=== PATIENT | female | born 1960 | race Caucasian/White ===

== ENCOUNTER 2024-12-13 21:08 | Inpatient (IN) | payer MEDICARE, OTHER, SELFPAY ==
[2024-12-13] VITALS (17 sets, daily range): BP systolic 91–118; BP diastolic 43–77; BMI 22.7
[2024-12-13 18:22] LABS: % Basophils 0.2 % (0-2); % Immature Granulocytes 0.2 % (0-0.5); % Lymphocytes 5.3 % (20.5-51.1); % Monocytes 1.3 % (1.7-9.3); Absolute Lymphocytes 0.2 10^3/uL (1.2-3.4); Absolute Monocytes 0.1 10^3/uL (0.1-0.6); Absolute Neutrophils 4.2 10^3/uL (1.4-6.5); Hematocrit 26.9 % (37.0-47.0); Hemoglobin 8.2 g/dL (12.0-16.0); Mean Corp Hgb Conc. 30.5 g/dL (33.0-37.0); Mean Corpuscular Hgb 27.4 pg (27.0-31.0); Mean Platelet Volume 9.6 fL (7.4-10.4); Nucleated Red Blood Cells % 0 %; Platelet Count 232 10^3/uL (130-400); Red Blood Cell Count 2.99 10^6/uL (4.20-5.40); Red Cell Dist. Width 15.7 % (11.5-14.5); White Blood Cell Count 4.5 10^3/uL (4.8-10.8)
[2024-12-13 18:39] LABS: Lactic Acid 5.2 mmol/L (0.7-2.0)
[2024-12-13 18:43] LABS: ALT (SGPT) 32 U/L (0-35); AST (SGOT) 97 U/L (14-36); Albumin 3.4 g/dl (3.5-5.0); Blood Urea Nitrogen 22 mg/dl (7-17); Calcium 9.4 mg/dl (8.4-10.2); Carbon Dioxide 29 mmol/L (22-30); Chloride 102 mmol/L (98-107); Estimated Creatinine Clearance 73 ml/min; Glucose 81 mg/dl (70-99); Sodium 141 mmol/L (135-145); Total Bilirubin 1.1 mg/dl (0.2-1.3); eGFR > 60.00
[2024-12-13 18:50] LABS: Alkaline Phosphatase 1188 U/L (38-126)
[2024-12-13 18:54] LABS: NT-proBNP 960 pg/ml
--- NOTE | 2024-12-13 19:07 | ED.GENMED ---
History of Present Illness
General
Chief Complaint: Fever
Time Seen by Provider: 12/13/24 18:35
History of Present Illness
History of Present Illness:
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 Patient arrives with brother, notes that fever started today. Patient receives her cancer care at [facility],
currently on chemotherapy. She is on oral medication. Denies any increased dyspnea or cough. Denies pain. Denies abdominal pain or vomiting. Notes chronic lower extremity swelling. She is on 6 L at baseline. No known sick contacts. Patient
is full code. No additional history or symptoms reported at this time
Phy Exam
Physical Exam
Physical Exam:
General: Frail, cachectic
HEENT: protecting airway
Neck: appears supple
CV: Tachycardic, regular rhythm, no evidence of cyanosis
Resp: Increased work of breathing with rhonchorous breath sounds bilaterally
Abd: Soft and non-distended, no tenderness to palpation
Extremities: Moderate pitting edema to bilateral lower extremities, reported as chronic. Weeping
Neuro: alert, no focal neurologic deficit
: deferred
Rectal: deferred
Psych: Normal affect
Skin: Intact
Sepsis
Sepsis Screening
Sepsis Assessment: Septic Shock
Sepsis Screening: Lactate >/=4mmol/L
Sepsis Screen
Sepsis Screen: Septic Shock
Date: 12/13/24
Time: 20:18
Course
Orders/Labs/Results
Orders:
Orders
12/13/24 18:06
Electrocardiogram (*1) Urgent
Reason for Study: Other
Other Reason for Exam: Possible Sepsis
CR Chest Portable - 1 View Urgent
Comment: portable
Reason For Exam: hypoxic
Reason Study Needs to be Portable: Patient Unstable
12/13/24 18:07
EKG- Treatment ONCE
12/13/24 18:14
Complete Blood Count/With Diff Urgent
Comprehensive Metabolic Panel Urgent
Lactic Acid Q4H
Comment: ON ICE, CANCEL 2ND ORDER IF FIRST LACTIC ACID LEVEL <2
Blood Culture Q20M
SAMUEL Source: Blood/Venous
Specimen Description:
Comment: Urgent from separate sites. If patient screens positive for possible sepsis
12/13/24 18:27
BNP [NT-proBNP] Urgent
12/13/24 18:57
0.9% Sodium Chloride 1000 ml [Nss] 1,000 ml IV BOLUS
Acetaminophen [Tylenol] 650 mg PO NOW STA
Cefepime HCl [Maxipime] 2,000 mg IV NOW STA
Vancomycin [Vancocin] 1,500 mg 0.9% Sodium Chloride 500 ml [Nss] 500 ml IV NOW
12/13/24 19:00
Urinalysis Reflex To Culture Urgent
12/13/24 19:10
Blood Culture Q20M
SAMUEL Source: Blood/Venous
Specimen Description:
Comment: Urgent from separate sites. If patient screens positive for possible sepsis
12/13/24 19:16
0.9% Sodium Chloride 1000 ml [Nss] 1,000 ml IV BOLUS
12/13/24 20:17
0.9% Sodium Chloride 1000 ml [Nss] 1,000 ml IV BOLUS
12/13/24 22:15
Lactic Acid Q4H
Comment: ON ICE, CANCEL 2ND ORDER IF FIRST LACTIC ACID LEVEL <2
Abnormal Lab Results
12/13/24
18:14
WBC 4.5 L 10^3/uL
(4.8-10.8)
RBC 2.99 L 10^6/uL
(4.20-5.40)
Hgb 8.2 L g/dL
(12.0-16.0)
Hct 26.9 L %
(37.0-47.0)
MCHC 30.5 L g/dL
(33.0-37.0)
RDW 15.7 H %
(11.5-14.5)
Absolute Lymphs (auto) 0.2 L 10^3/uL
(1.2-3.4)
Neutrophils % 93.0 H %
(42.2-75.2)
Lymphocytes % 5.3 L %
(20.5-51.1)
Monocytes % 1.3 L %
(1.7-9.3)
BUN 22 H mg/dl
(7-17)
Creatinine 0.5 L mg/dL
(0.6-1.0)
Lactic Acid 5.2 H* mmol/L
(0.7-2.0)
AST 97 H U/L
(14-36)
Alkaline Phosphatase 1188 H U/L
(38-126)
Total Protein 6.0 L g/dl
(6.3-8.2)
Albumin 3.4 L g/dl
(3.5-5.0)
12/13/24 18:14
12/13/24 18:14
Vital Signs
Initial and Last Documented VS:
Initial Vital Signs
Temp Pulse Resp Pulse Ox
103.1 F H 151 18 88
12/13/24 18:01 12/13/24 18:01 12/13/24 18:01 12/13/24 18:01
Last Documented Vital Signs
Temp Pulse Resp BP Pulse Ox
103.1 F H 128 24 97/58 96
12/13/24 18:07 12/13/24 20:00 12/13/24 20:00 12/13/24 20:00 12/13/24 20:00
MDM/Problems Addressed
MDM/Problems Addressed:
64-year-old female with history of metastatic biliary cancer presenting for fever. Vital signs arrival significant for fever and tachycardia.
On exam patient is unwell in appearance. Patient's vital signs are concerning for sepsis. Unclear source at this time, however given comorbidities, plan for laboratory analysis, cultures, lactic acid. Patient had some laboratory analysis
completed prior to my assessment. No significant leukocytosis, however lactic acid is greater than 5, indicating severe sepsis. Will start fluids at 30 cc/kg fluid bolus. Blood pressure is also low. Did have discussion with patient and family,
is full code.
19:15 - Respiratory status is compromised, chest x-ray with significant findings, however suspected to be from underlying malignancy. Difficulty ruling out infiltrate. Starting broad-spectrum antibiotics. Placing patient on high flow nasal
cannula. Plan for admission
*Critical Care Note
Total Time (30-74mins, 75-104mins- exclusive of procedures): 37
comment:
The high probability of a clinically significant, sudden or life threatening deterioration of the cardiopulmonary, sepsis system(s) required my full and direct attention, intervention and personal management. The aggregate critical care time was 37
minutes. This time is in addition to time spent performing reported procedures but includes the following:
[x] Data Review and interpretation
[x] Patient assessment and monitoring of vital signs
[x] Documentation
[x] Medication orders and management
ED Attending Note
-
Portions of this chart may have been created with voice recognition software.� Occasional wrong word or��sound alike� substitutions may have occurred due to the inherent limitations of voice recognition software.
Discharge Plan
Departure
Patient Disposition: Admit
Date of Disposition: 12/13/24
Time of Disposition: 20:17
Presentation/result/management discussed w/ accepting MD/DO: Hospitalist
Patient with high blood pressure during this ER visit?: No
Condition: Fair
Discharge Problem:
Septic shock, Hypoxia
Interventions
Interventions:
*Risk Screen - Suicide Last Done: 12/13/24 18:00
*General Assessment Last Done: 12/13/24 18:00
*Neglect/Abuse Screening Last Done: 12/13/24 18:00
*ED- Fall Risk Assessment Last Done: 12/13/24 18:00
*ED COVID-19 Vaccine History Last Done: 12/13/24 18:00
ED- Neurological Assessment Last Done: 12/13/24 18:15
ED-Skin Assessment Last Done: 12/13/24 18:15
Discharge Date and Time
Print Language: NAURUAN
[2024-12-13] MEDS: TYLENOL 650 MG PO ×2 (19:14→22:34)
[2024-12-13] MEDS: NSS 1000 IV ×4 (19:16→23:01)
[2024-12-13] MEDS: MAXIPIME 2000 MG IV (19:19)
[2024-12-13] MEDS: VANCOCIN 530 MG IV (19:37)
[2024-12-13] MEDS: SUBLIMAZE 50 MCG IV (20:37)
[2024-12-13] MEDS: ZOFRAN 4 MG IV (20:37)
--- NOTE | 2024-12-13 21:01 | HPS.HSE ---
Family Physician
-
Family Physician: NOT KNOW UNKNOWN - PT DOES
Chief Complaint
-
fever
History of Present Illness
64yo F with PMHx of billiary adenocarcinoma with mets to the lung on ivosidenib, chronic hypoxic respiratory failure on 6L home O2, JOCELYNE, b/l LE lymphedema came wih 1 day of feversand chills, found to be febrile and in need of HFNC due to worsening
hypoxia. Her pimary oncologist is in [facility].
Medical History
Past Medical History
Past Medical History: Reports Other
Additional Past Medical History:
See HPI
Past Surgical History: Reports Other
Social History
Tobacco: Non-smoker
Alcohol: None
Drug: None
Family History
Family History: Not pertinent
Allergies / Home Medications
Allergies reflects when Allergies were last updated in [facility].
Home Medications with original date entered in [facility]
Allergy/Medication List:
Allergies
Allergy/AdvReac Type Severity Reaction Status Date / Time
neomycin Allergy Severe Maharaj Verified 12/13/24 18:05
Ziyad
[place]
Home Medications
cyanocobalamin (vitamin B-12) 1,000 mcg tablet 1,000 mcg PO DAILY 12/13/24
diphenoxylate-atropine 2.5 mg-0.025 mg tablet 2 tab PO 4-8XD PRN diarrhea 12/13/24
ferrous sulfate 325 mg (65 mg iron) tablet 325 mg PO DAILY 12/13/24
furosemide 20 mg tablet 20 mg PO BID 12/13/24
ivosidenib 250 mg tablet 500 mg PO DAILY 12/13/24
loperamide 2 mg tablet 2 mg PO Q6H PRN diarrhea 12/13/24
lorazepam 1 mg tablet 1 mg PO HS 12/13/24
ondansetron 8 mg disintegrating tablet 8 mg PO Q8H 12/13/24
prochlorperazine maleate 10 mg tablet (Compazine) 10 mg PO Q6H PRN nausea 12/13/24
spironolactone 25 mg tablet 25 mg PO BID 12/13/24
Review of Systems
-
History Source: Patient
A 12 point ROS was completed and negative except as noted: Yes
Constitutional: Reports See HPI
Respiratory: Reports See HPI
Physical Exam
Vital Signs
Vital Signs
Temp Pulse Resp BP Pulse Ox
103.1 F H 131 27 92/77 95
12/13/24 18:07 12/13/24 20:15 12/13/24 20:15 12/13/24 20:15 12/13/24 20:15
Physical Exam
General: Comfortable, Conversant and Respiratory Distress
HEENT: NormoCephalic, Moist mucous membranes and Atraumatic
Respiratory: Rales; No Wheezes or Crackles
Cardiac: S1/S2 and Regular Rhythm; No Murmur
GI: Non Tender, Normal Bowel Sounds and Distended
Musculoskeletal: No Clubbing, No Cyanosis, Edema, Left Lower Extremity and Edema, Right Lower Extremity
Skin: Warm; No Dry or Rash
Neuro: Awake, Alert, Oriented and AO x 3
Psych: Calm
Laboratory Results
-
12/13/24 18:14
12/13/24 18:14
Laboratory Results
Lactic Acid 5.2 mmol/L (0.7-2.0) H* 12/13/24 18:14
Total Bilirubin 1.1 mg/dl (0.2-1.3) 12/13/24 18:14
AST 97 U/L (14-36) H 12/13/24 18:14
ALT 32 U/L (0-35) 12/13/24 18:14
Alkaline Phosphatase 1188 U/L (38-126) H 12/13/24 18:14
Data Reviewed
-
Diagnostic Radiology: Report Reviewed by me
Lab Data: Labs Reviewed by me
Impression/Plan
-
A/P:
#Sepsis (Hypoxia, fever, elevated lactate) most likely 2/2 pneumonia
#Acute on chronic hypoxic respiratory failure
#Thin curvilinear density projecting over the lateral aspect of the left upper hemithorax. This density raises concern for a small loculated pneumothorax
Complete w/u with Bcx, Ucx
Vanco/Cefepime
Pulm consult
Wean off O2
IVF
repeat XR in AM
Check COVID-19 and influenza
Sputum Cx
Hold diuretics, follow lactte
#Biliary adenocarcinoma with mets
Oncology consult - patient requested to contact in [facility]
#Anemia
#Leukopenia
follow CBC
#Eleavted Alk.phos
#Elevated AST
2/2 CA
follow LFT
DVT ppx lovenox
DNI, but allowed chest compressions (patient verbalized understanding that can vbe futile without intubation but asking to try one time and if does not help -stop. Family present in the room)
I have spent at least 78min admitting the patient
[2024-12-13 21:17] LABS: COVID-19 Antigen Negative (Negative)
[2024-12-13 22:17] LABS: B.E. 4.5 mmol/L; HCO3 30.2 mmol/L (21-28); O2 Saturation % 89.5 % (94-98); PCO2 51 mmHg (32-35); pH 7.38 (7.35-7.45)
[2024-12-13 22:20] LABS: PO2 56 mmHg (83-108)
[2024-12-13] MEDS: ATIVAN 1 MG PO (22:34)
--- NOTE | 2024-12-13 22:40 | PTCARENOTE ---
Received pt from ED at 21:50. Pt aaox3, able to make needs known. ST on monitor, HR 120-130s. +4blle edema. Lungs diminished with crackles in bases, exp wheeze throughout L side. On HFNC 50L 100%, SaO2 90%. Stress incont of urine.
Round/distended/firm abdomen (ascites). Sacrum blanchable red, silicone border foam applied. Legs weeping, but no open areas. Legs left open to air. Assistx2 to turn in bed. Q2T. Rectal temp on arrival 101.1. PO tylenol given. Call jaramillo within
reach, care ongoing.
--- NOTE | 2024-12-13 23:42 | PTCARENOTE ---
pt aaox3, able to make needs known. Repeat lactic ordered. Pt states she does not want any more labs drawn until they access her port. IV team paged. Will draw lactic once port is accessed.
[2024-12-14] VITALS (50 sets, daily range): BP systolic 70–145; BP diastolic 46–93; BMI 22.7
[2024-12-14 00:32] LABS: Lactic Acid 2.9 mmol/L (0.7-2.0)
--- NOTE | 2024-12-14 00:35 | VATNOTE ---
CALLED TO ACCESS R SUBQ PRT TO OBTAIN LABS . PT REFUSING FOR LABS UNLESS PRT ACCESSED. PT WITH TWO 20G PERIPERHAL SITES AT THIS TIME AND HAS NO NEED FOR A CENTRAL ACCESS. ORDERED LAB DRAWN FROM R IV SITE. PT ASLEEP AND I DID NOT AWAKEN TO EXPLAIN
SITUATION TO HER. SPOKE WITH PCN. WILL ACCESS PRT AT ANY TIME NECESSARY. VAT TO FOLLOW.
--- NOTE | 2024-12-14 00:49 | PTCARENOTE ---
per IV team, port access not necessary. Labs to be drawn peripherally. Repeat lactic 2.9, will recheck with am labs
--- NOTE | 2024-12-14 01:15 | W.PN.UPDATE ---
Update Note
Progress Note Update
~2230: RN reached out about pts rectal temp of 101.1. HR in the 120s- 130s. BPs 100s/50s. Lactic 5.2. Already on Cefepime and Vanco. IVFs ordered. PRN Tylenol given by RN.
CXR in the ER read Extensive pulmonary metastatic disease. No evidence for significant pleural effusion on this portable AP exam.
Thin curvilinear density projecting over the lateral aspect of the left upper hemithorax. This density raises concern for a small loculated pneumothorax, although there appear to be lung markings extending peripheral to this density. This could also
be overlying the patient. When clinically feasible, repeat radiograph is recommended.
~0057 Pt with BP 85/46 HR 110s-120s. On re-check BP was 70/40 with manual check and automatic cuff. Pt asymptomatic- sleepy yet arousable to verbal stimuli. She already received 3L of NS wide open in the ED and is on NSS IVF @ 100ml/hr. Levo gtt
ordered starting at 2 mcg/min. repeat lactic trending down to 2.9 and repeat temp. 98.2 after Tylenol.
~0500 RN TT to alert HGB 7.1 drop from 8.2. No active bleeding signs overtly seen. Pt remains on Levo gtt. H&H repeated to confirm accuracy- Type and screen added at this time. Pt resting in bed tired but asymptomatic otherwise. Denies
lightheadedness/dizziness. Morning glucose on labs read <30 and on AccuCheck she read 36- Pt alert enough and drink juice- D50 PRN, accuchecks added and IVF switched from NSS to D5NS. morning Lactic was 1.6.
~0600 Repeat accucheck after D50 was 142 Repeat HGB 7.6- type and screen obtained.
[2024-12-14] MEDS: LEVOPHED 250 IV (01:21)
--- NOTE | 2024-12-14 01:36 | PTCARENOTE ---
Repeat rectal temp 98.2. BP 85/45 @00:00. Pt asymptomatic, aaox3, no c/o lightheadedness. Repeat BP @0100 70/47 automatic. Manual BP 70/40. Pt drowsy but easily arousable. RN NEONATAL notified via tiger text. Orders placed for levo. Levo started @ 2mcg/min.
Repeat BP s/p levo initiation 87/52.
[2024-12-14] MEDS: MAXIPIME 2000 MG IV ×3 (04:07→21:00)
[2024-12-14] MEDS: STERILE WATER FOR INJECTION 10 ML IV ×3 (04:08→21:00)
[2024-12-14 04:37] LABS: Hematocrit 22.8 % (37.0-47.0); Hemoglobin 7.1 g/dL (12.0-16.0); Mean Corp Hgb Conc. 31.1 g/dL (33.0-37.0); Mean Corpuscular Hgb 27.6 pg (27.0-31.0); Mean Corpuscular Volume 88.7 fL (81.0-99.0); Mean Platelet Volume 9.9 fL (7.4-10.4); Platelet Count 215 10^3/uL (130-400); Red Blood Cell Count 2.57 10^6/uL (4.20-5.40); Red Cell Dist. Width 15.7 % (11.5-14.5); White Blood Cell Count 15.3 10^3/uL (4.8-10.8)
[2024-12-14 04:48] LABS: Lactic Acid 1.6 mmol/L (0.7-2.0)
[2024-12-14 04:59] LABS: Absolute Neutrophils -Man Diff 13.9 10^3/uL (1.4-6.5); Anisocytosis 1+; Band Neutrophils 10 % (0-3); Hypochromasia 1+; Lymphocytes 8 % (20-51); Monocytes 1 % (2-9); Normal RBC Morphology No; Platelets Checked Yes; Segmented Neutrophils 81 % (42-75); Total Cells Counted 100
[2024-12-14 05:16] LABS: ALT (SGPT) 27 U/L (0-35); AST (SGOT) 112 U/L (14-36); Albumin 2.7 g/dl (3.5-5.0); Alkaline Phosphatase 876 U/L (38-126); Blood Urea Nitrogen 26 mg/dl (7-17); Carbon Dioxide 26 mmol/L (22-30); Chloride 109 mmol/L (98-107); Estimated Creatinine Clearance 73 ml/min; Glucose < 30 mg/dl (70-99); Magnesium 1.5 mg/dl (1.6-2.3); Sodium 139 mmol/L (135-145); Total Bilirubin 0.8 mg/dl (0.2-1.3); Total Protein 4.9 g/dl (6.3-8.2); eGFR > 60.00
[2024-12-14 05:33] LABS: Glucose - Point of Care 36 mg/dl (70-99)
[2024-12-14] MEDS: DEXTROSE 50% SYRINGE 12.5 GRAMS IV ×4 (05:45→21:22)
--- NOTE | 2024-12-14 05:45 | PTCARENOTE ---
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 Repeat h&h ordered and drawn. Repeat hgb 7.6. Orders for type and screen placed.
[2024-12-14 05:49] LABS: Glucose - Point of Care 31 mg/dl (70-99)
[2024-12-14 05:57] LABS: Hematocrit 24.2 % (37.0-47.0); Hemoglobin 7.6 g/dL (12.0-16.0)
[2024-12-14] MEDS: D5/0.9% SODIUM CHLORIDE 1000 IV (06:03)
--- NOTE | 2024-12-14 06:07 | PTCARENOTE ---
pt am labs showed glucose less than 30. Accucheck 36. Pt drowsy but arousable. Two cups of juice given. Repeat accucheck 31. Orders placed for IV dextrose. IV dextrose given. Fluids switched to D5NS @ 60ml/hr. Accuchecks ordered Q6H. Repeat
accucheck 142.
[2024-12-14 06:08] LABS: Glucose - Point of Care 142 mg/dl (70-99)
--- NOTE | 2024-12-14 08:13 | PTCARENOTE ---
Assumed care of patient this AM. 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 Levo @ 4mcg/15mls/hr. Last BP 105/79(88). Patient INC of loose stool and urine. Patient changed and repositioned at this time. High flow at 50L 100% spo2 96%.
Blood glucose 31 in lab work this AM. At 6AM glucose finger stick 141. Rechecked as per protocol BS 101 at 8AM. SR in the 90's. Call jaramillo in reach. Will continue to monitor frequently.
[2024-12-14 08:19] LABS: Glucose - Point of Care 101 mg/dl (70-99)
--- NOTE | 2024-12-14 08:19 | PHA.VAN.IN ---
Assessment
- Assessment
Renal Function: Appears similar to baseline
Concomitant Antimicrobials: cefepime
AUC Dosing Plan
- Dosing Variables
Dosing Weight (kg): 56
Dosing CrCl (ml/min): 73
Vd coefficient (L/kg): 0.7
- Empiric Dosing
Initial / Loading Dose: 1500mg - 12/13 19:37
Maintenance Regimen: Vanc 500mg Q12H - first dose now then 1800
Estimated AUC (mcg*h/mL): 405
Estimated Peak (mcg*h/mL): 23.6
Estimated Trough (mcg/ml): 11.5
Estimated Half Life (H): 10.7
- Monitoring
No levels ordered at this time: consider levels in next few days
Pharmacokinetics Vancomycin I
- -
Patient Age: 64
Patient Sex: Female
Vancomycin Day #: 1
Indication: Other
Requesting Provider: Dr. Gates
Pertinent Antimicrobial Allergies:
neomycin - Maharaj Ziyad syndrome
Height / Weight:
Height 5 ft 2 in
Actual Weight 56.3 kg
Pertinent Past Medical History: metastatic billiary adenocarcinoma, home O2
- Vital Signs / Lab Results
Temp Pulse Resp BP Pulse Ox
98.2 F 95 22 105/79 97
12/14/24 00:51 12/14/24 08:00 12/14/24 08:00 12/14/24 08:00 12/14/24 07:45
Lab Results - Hematology
12/13/24 12/14/24
18:14 04:19
WBC 4.5 L 15.3 H
Band Neutrophils 10 H
Lab Results - Chemistry
12/13/24 12/14/24
18:14 04:19
BUN 22 H 26 H
Creatinine 0.5 L 0.6
Estimated Creat Clear 73 73
Albumin 3.4 L 2.7 L
12/13/24 12/14/24 12/14/24
18:14 00:11 04:19
Lactic Acid 5.2 H* 2.9 H 1.6
Microbiology Results
12/13/24 18:14 Blood Culture - Preliminary
Blood/Venous Positive culture in progress
Gram Stain - Preliminary
12/13/24 20:42 Influenza Types A & B (JEANINE) - Final
Nasal Swab Negative for Influenza A & B, NAAT
Negative results must be combined with clinical observations
and patient history.
Nucleic Acid Amplification test (NAAT)performed on the
[employer] platform.
--- NOTE | 2024-12-14 08:42 | CON.ONC ---
Consultation
-
Date Consultation Requested: 12/14/24
Date Consultation Performed: 12/14/24
Requesting Provider: Nicole
Performing Provider: Belle
Reason for Consultation: Metastatic biliary cancer
Impression
Impression
Pneumonia/sepsis
Acute on chronic respiratory failure
Metastatic cholangiocarcinoma
Poor performance status
Plan
Plan
Agree with antibiotic treatment of presumed sepsis. White blood count is adequate. I am concerned about patient's functional decline and potential for progressive disease. She told me she does not wish prolonged CPR or ventilation. If she
improves, she will follow-up with Dr. Ron Arnold at [place]. We did discuss alternatives such as hospice care but for now she wants to see if she will improve with antibiotic therapy with suspected pneumonia/sepsis.
Patient History
History of Present Illness
CC: Fever, worsening hypoxia
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 Ron Arnold at [place] presenting for fever. Please me she previously was treated with standard treatments (cisplatin +
gemcitabine) that she tolerated poorly. More recently she is currently on TIBSOVO� (ivosidenib). Patient presented to the ER yesterday with fever 103.1 and worsening hypoxia requiring increase of chronic 6 L O2 (uses at home) to high flow O2.
Patient was empirically started on vancomycin + cefepime with a pulmonary consultation which is pending. Patient tells me she does not wish aggressive resuscitation if she has cardiopulmonary arrest. Limited DNR is noted.
Past-Medical/Surgical History
PMH: Metastatic cholangiocarcinoma with lung, liver, spine metastasis
PSH: None
SH: Non-smoker, nondrinker. Family includes sister, brother, and daughter
Patient Medication
�Medication �Instructions �Recorded �Confirmed �Last Taken �Type
cyanocobalamin (vitamin B-12) 1,000 mcg PO DAILY 12/13/24 12/13/24 Unknown History
1,000 mcg tablet
diphenoxylate-atropine 2.5 2 tab PO 4-8XD PRN diarrhea 12/13/24 12/13/24 Unknown History
mg-0.025 mg tablet
ferrous sulfate 325 mg (65 mg 325 mg PO DAILY 12/13/24 12/13/24 Unknown History
iron) tablet
furosemide 20 mg tablet 20 mg PO BID 12/13/24 12/13/24 Unknown History
ivosidenib 250 mg tablet 500 mg PO DAILY 12/13/24 12/13/24 Unknown History
loperamide 2 mg tablet 2 mg PO Q6H PRN diarrhea 12/13/24 12/13/24 Unknown History
lorazepam 1 mg tablet 1 mg PO HS 12/13/24 12/13/24 Unknown History
ondansetron 8 mg disintegrating 8 mg PO Q8H 12/13/24 12/13/24 Unknown History
tablet
prochlorperazine maleate 10 mg 10 mg PO Q6H PRN nausea 12/13/24 12/13/24 Unknown History
tablet (Compazine)
spironolactone 25 mg tablet 25 mg PO BID 12/13/24 12/13/24 Unknown History
Active Medications
Generic Name Dose Route Start Last Admin
Trade Name Freq PRN Reason Stop Dose Admin
Acetaminophen 650 mg 12/13/24 21:45 12/13/24 22:34
Acetaminophen 325 Mg Tablet PO 01/10/25 21:44 650 mg
Q4HPRN PRN Administration
mild pain/DANIELS/temp> 100.4F
Bisacodyl 10 mg 12/13/24 21:45
Bisacodyl 10 Mg Rectal Suppository RECTAL 01/10/25 21:44
[id number] PRN
constipation
Cefepime HCl 2,000 mg 12/14/24 04:00 12/14/24 04:07
Cefepime Hcl 2,000 Mg/12.5 Ml Vial IV 2,000 mg
Q8H LILLIAN Administration
Dextrose 12.5 grams 12/14/24 05:28 12/14/24 05:45
Dextrose 50% (0.5 Grams/Ml) 50 Ml Syringe IV 01/11/25 05:27 12.5 grams
[id number] PRN Administration
blood sugar <70
Diphenoxylate HCl/Atropine 2 tablet 12/13/24 21:56
Diphenoxylate/Atropine Tablet PO 01/10/25 21:44
Q6HPRN PRN
diarrhea
Enoxaparin Sodium 40 mg 12/14/24 18:00
Enoxaparin Sodium 40 Mg/0.4 Ml Syringe SC 01/11/25 17:59
QPM LILLIAN
Ferrous Sulfate 325 mg 12/14/24 08:00
Ferrous Sulfate 325 Mg Tablet PO 01/11/25 07:59
DAILY LILLIAN
Norepinephrine Bitartrate 4 mg in 250 mls @ 0 mls/hr 12/14/24 01:15 12/14/24 01:21
Levophed IV 250 mls
PER PROTOCOL LILLIAN Administration
Protocol
Per Protocol
Dextrose/Sodium Chloride 1,000 mls @ 60 mls/hr 12/14/24 06:00 12/14/24 06:03
D5/0.9% Sodium Chloride IV 1,000 mls
[id number] LILLAIN Administration
Vancomycin HCl 100 mls @ 100 mls/hr 12/14/24 09:00
Vancocin Hcl 500 Mg IV
Q12@0600,1800 LILLIAN
Protocol
Lorazepam 1 mg 12/13/24 22:00 12/13/24 22:34
Lorazepam 1 Mg Tablet PO 01/10/25 21:59 1 mg
HS LILLIAN Administration
Pt's Own (Ivosidenib 500 mg 12/14/24 08:00
250 Mg Tablet) PO 01/11/25 07:59
DAILY LILLIAN
Polyethylene Glycol 17 grams 12/13/24 21:45
Polyethylene Glycol Powder 17 Grams Packet PO 01/10/25 21:44
DAILYPRN PRN
constipation
Senna/Docusate Sodium 1 tablet 12/13/24 21:45
Docusate W/Senna (Dotty-Colace) Tablet PO 01/10/25 21:44
BIDPRN PRN
constipation
Sodium Chloride 0 flush 12/13/24 22:00
Sodium Chloride 0.9% (Flush) Syringe IV 01/10/25 21:59
PER PROTOCOL LILLIAN
Sterile Water 10 ml 12/14/24 04:00 12/14/24 04:08
Sterile Water For Injection 10 Ml Vial IV 01/11/25 03:59 10 ml
Q8H LILLIAN Administration
Trimethobenzamide HCl 200 mg 12/13/24 22:32
Trimethobenzamide 200 Mg/2 Ml Vial IM 01/10/25 22:31
Q6HPRN PRN
n/v
Physical Exam
-
General: Cachetic and Other (Chronically ill, frail)
HEENT: Negative Jaundice
Cardiology: S1 and S2
Pulmonary: Clear and Other (On high flow O2)
GI: Soft
Extremities: Edema (2-3+ B/L LE)
Neurology: Non Focal
Labs
Lab Results
WBC 15.3 10^3/uL (4.8-10.8) H 12/14/24 04:19
RBC 2.57 10^6/uL (4.20-5.40) L 12/14/24 04:19
Hgb 7.6 g/dL (12.0-16.0) L 12/14/24 05:39
Hct 24.2 % (37.0-47.0) L 12/14/24 05:39
MCV 88.7 fL (81.0-99.0) 12/14/24 04:19
MCH 27.6 pg (27.0-31.0) 12/14/24 04:19
MCHC 31.1 g/dL (33.0-37.0) L 12/14/24 04:19
RDW 15.7 % (11.5-14.5) H 12/14/24 04:19
Plt Count 215 10^3/uL (130-400) 12/14/24 04:19
MPV 9.9 fL (7.4-10.4) 12/14/24 04:19
Abs Immat Gran (auto) 0.0 10^3/uL (0-0.05) 12/13/24 18:14
Absolute Neuts (auto) 4.2 10^3/uL (1.4-6.5) 12/13/24 18:14
Absolute Lymphs (auto) 0.2 10^3/uL (1.2-3.4) L 12/13/24 18:14
Absolute Monos (auto) 0.1 10^3/uL (0.1-0.6) 12/13/24 18:14
Absolute Eos (auto) 0.0 10^3/uL (0-0.7) 12/13/24 18:14
Absolute Basos (auto) 0.0 10^3/uL (0-0.2) 12/13/24 18:14
Immature Gran % 0.2 % (0-0.5) 12/13/24 18:14
Neutrophils % 93.0 % (42.2-75.2) H 12/13/24 18:14
Lymphocytes % 5.3 % (20.5-51.1) L 12/13/24 18:14
Monocytes % 1.3 % (1.7-9.3) L 12/13/24 18:14
Eosinophils % 0.0 % (0-6) 12/13/24 18:14
Basophils % 0.2 % (0-2) 12/13/24 18:14
Creatinine 0.6 mg/dL (0.6-1.0) 12/14/24 04:19
Vital Signs
Vital Signs
Temp Pulse Resp BP Pulse Ox
98.2 F 95 22 105/79 97
12/14/24 00:51 12/14/24 08:00 12/14/24 08:00 12/14/24 08:00 12/14/24 07:45
[2024-12-14] MEDS: VANCOCIN HCL 500 MG 100 IV ×2 (10:09→17:45)
--- NOTE | 2024-12-14 10:27 | CON.PUL ---
Consultation
Consultation Request
Date/Time Consultation Requested: 12/14/2024
Date/Time Consultation Performed: 12/14/2024
Requesting Provider: Dr. Gates
Performing Provider: Dr. Manuel Jacob
Reason for Consultation: Hypoxemic respiratory failure
Medical History
-
History of Present Illness:
64-year-old woman with past medical history significant for biliary adenocarcinoma with lung metastatic disease currently on Ivosidenib, with chronic hypoxemic respiratory failure on 6 L at home. Patient has chronic bilateral lymphedema. Came with
1 day of fever and chills, found to be febrile in the emergency room. Significant hypoxemia requiring high flow oxygen. Chest x-ray on admission showed extensive pulmonary metastatic disease. No pleural effusion. Pneumonia cannot be ruled out.
Patient found to have leukocytosis, anemia of 7.6.
We were consulted on 12/15/2023 for evaluation
Patient has been losing weight.
She is debilitated. Mildly tachypneic at rest.
Somnolent unable to provide detailed history.
Family is at the bedside.
Currently on low-dose vasopressors and high flow oxygen at 100% FiO2.
Past Medical History
Past Medical History: Other (See assessment and plan)
Social History
Tobacco: Non-smoker
Alcohol: None
Drug: None
Family History
Family History: Reviewed & Not Pertinent
Allergies / Home Medications
Allergies
Allergy/AdvReac Type Severity Reaction Status Date / Time
neomycin Allergy Severe Maharaj Verified 12/13/24 18:05
Ziyad
Sydrome
Home Medications
�Medication �Instructions �Recorded �Confirmed �Last Taken �Type
cyanocobalamin (vitamin B-12) 1,000 mcg PO DAILY Supplement 12/13/24 12/13/24 Unknown History
1,000 mcg tablet
diphenoxylate-atropine 2.5 2 tab PO 4-8XD PRN diarrhea 12/13/24 12/13/24 Unknown History
mg-0.025 mg tablet
ferrous sulfate 325 mg (65 mg 325 mg PO DAILY Supplement 12/13/24 12/13/24 Unknown History
iron) tablet
furosemide 20 mg tablet 20 mg PO BID Fluid 12/13/24 12/13/24 Unknown History
Retention/Swelling
ivosidenib 250 mg tablet 500 mg PO DAILY Cancer 12/13/24 12/13/24 Unknown History
loperamide 2 mg tablet 2 mg PO Q6H PRN diarrhea 12/13/24 12/13/24 Unknown History
lorazepam 1 mg tablet 1 mg PO HS Mental Health/Anxiety 12/13/24 12/13/24 Unknown History
ondansetron 8 mg disintegrating 8 mg PO Q8H nausea/vomiting 12/13/24 12/13/24 Unknown History
tablet
prochlorperazine maleate 10 mg 10 mg PO Q6H PRN nausea 12/13/24 12/13/24 Unknown History
tablet (Compazine)
spironolactone 25 mg tablet 25 mg PO BID Fluid 12/13/24 12/13/24 Unknown History
Retention/Swelling
Review of Systems
-
History Source: Patient
All other systems: Negative unless noted
Vitals / Labs / Diagnostic Testing
Vital Signs
Temp Pulse Resp BP Pulse Ox
97.1 F 99 26 122/71 96
12/14/24 09:26 12/14/24 10:00 12/14/24 10:00 12/14/24 10:00 12/14/24 10:00
Lab Data
12/14/24 05:39
12/14/24 04:19
Laboratory Results
12/13/24
22:06
pH 7.38
pCO2 51 H
pO2 56 L*
HCO3 30.2 H
O2 Delivery Level
Microbiology
12/13/24 18:14 Blood/Venous Blood Culture - Preliminary
Positive culture in progress
12/13/24 18:14 Blood/Venous Gram Stain - Preliminary
12/13/24 20:42 Nasal Swab Influenza Types A & B (JEANINE) - Final
Negative for Influenza A & B, NAAT
Negative results must be combined with clinical observations
and patient history.
Nucleic Acid Amplification test (NAAT)performed on the
[employer] platform.
Diagnostic Testing:
Physical Exam
-
HEENT: Normocephalic
Cardiovascular: S1/S2
Respiratory: Rales
GI: Soft and Non Distended
Neurology: Awake and Other (Somnolent but arousable.)
Skin: Warm and Other (Pale)
General: Respiratory Distress (Mild R breast) and Other (Cachectic)
Assessment
-
64-year-old woman with past medical history of biliary metastatic carcinoma on therapy at [facility]. Admitted with fevers, hypoxemia and abnormal chest x-ray suggestive of pneumonia. We were consulted on 12/14/2024 for evaluation of
hypoxemia and abnormal chest x-ray.
Acute hypoxemic respiratory failure recurrent high flow oxygen due to possible pneumonia on top of bilateral metastatic disease.
Chest x-ray: Bilateral metastatic disease-lower lobe infiltrate suggestive of pneumonia versus atelectasis.
Chronic hypercapnic respiratory failure: Likely due to underlying bilateral metastatic lung disease burden.
AB.38/51/56. Bacteremia: Gram-positive cocci in clusters
Septic shock
Gram stain with gram-positive cocci in clusters.
Chronic immunosuppression on cancer therapy
Severe anemia likely due to underlying carcinoma/chemotherapy
Abnormal LFTs-elevated alkaline phosphatase/mild transaminitis-suspect bone metastatic disease.
Cachexia
-
Leukocytosis conditions present prior admission:
Conditions present prior admission
Biliary adenocarcinoma with pulmonary metastasis-follows at [facility]-on chemotherapy
.
Assessment and plan:
Unfortunately, this patient is critically ill with severe hypoxemia-chest x-ray with extensive bilateral pulmonary metastatic burden and cannot rule out pneumonia. Lymphangitic spread also could be the reason for her progressive hypoxemia and
symptoms.
Requiring low-dose vasopressors earlier today.
-
Agree with broad-spectrum antibiotics
Follow-up blood culture [id number] cocci in clusters.
Patient has a port. If persistent positive blood cultures may need to be addressed.
Repeat blood cultures tomorrow
Sputum culture if able-unable to produce.
-
Septic shock:
Vasopressors will be used for mean arterial systolic pressure less than 65 mmHg
Levophed at 2 mics per minute. Wean off as able.
Currently renal function is normal
Initial lactic acid elevated now decreased to 1.6
Status post IV fluid resuscitation
Follow fever curve and leukocytosis
-
Continue oxygen supplementation to maintain pulse ox above 90%.
High flow oxygen currently 100% FiO2
Limited DNR
If worsening hypoxemia, I doubt noninvasive mechanical ventilation will be useful will need intubation. Discussed with family and they agree.
Family at the bedside: I recommended hospice care. Patient is cachectic, debilitated, with septic shock requiring 100% FiO2. Poor prognosis.
-
Oncology following: Poor performance status.
Chemo on hold for now
-
DVT prophylaxis with Lovenox
-
Prognosis is poor.
-
Critical care statement: A total of 35 minutes of critical care time was provided for this patient today. This includes management of unstable vital signs, evaluation of the patient at bedside, reviewing the patient's pertinent medical records
including ventilator settings, arterial blood gases, radiographs, microbiology, laboratory evaluations and discussion with primary team, critical care nursing, and respiratory therapy.
[2024-12-14] MEDS: FEOSOL 325 MG PO (10:34)
[2024-12-14] MEDS: MAGNESIUM SULFATE 50 IV (11:48)
[2024-12-14] MEDS: FLUSH (NSS) 2 FLUSH IV (11:48)
--- NOTE | 2024-12-14 12:31 | W.PN.HOSP.TC ---
Today's Communication/Plan
-
Continue with broad-spectrum antibiotic
Monitor blood pressure
Wean off pressors as tolerated
Prognosis guarded
Assessment / Plan
Assessment / Plan
General: Comfortable, Conversant and Respiratory Distress
HEENT: NormoCephalic, Moist mucous membranes and Atraumatic, right chest wall port noted, mild dried blood right nostril noted
Respiratory: Rales; No Wheezes or Crackles, hyponasal cannula,
Cardiac: S1/S2 and Regular Rhythm; No Murmur
GI: Non Tender, Normal Bowel Sounds and Distended
Musculoskeletal: No Clubbing, No Cyanosis, Edema, Left Lower Extremity and Edema, Right Lower Extremity
Skin: Warm; No Dry or Rash
Neuro: Awake, Alert, Oriented and AO x 3
Psych: Calm
# Septic shock likely secondary to suspected bacterial pneumonia versus viral.
# Severe lactic acidosis
#Acute on chronic hypoxic respiratory failure likely secondary to lung malignancy versus pneumonia versus lymphangitic spread of cancer
#Chronic hypercapnic respiratory failure
COVID and influenza found to be negative
Continue with broad-spectrum antibiotics with vancomycin and cefepime for now
Wean oxygen as tolerated
Currently on 50 L with 100% FiO2 high flow nasal cannula.
Currently on 2 mics of Levophed. Wean if blood pressure can tolerate
Lactic acidosis resolved with IV fluid resuscitation
Will have speech therapy evaluate patient
Holding diuretics
Right to maintain euvolemic volume status
Pulmonary consulted
# Coag negative staph bacteremia likely contaminant
Second set of blood cultures pending. If positive may require ID input as patient has port
Patient already on vancomycin
#Hypoglycemia likely 2/2 infection
POC have stabilized
#Biliary adenocarcinoma with mets to lung, liver, spine
#Chronic immunosuppressant state
Oncology consult - patient requested to contact in [facility]
#Anemia iron deficiency
#Leukopenia
follow CBC
No active luminal bleeding noted
Check anemia panel
#Elevated Alk.phos
#Elevated AST
2/2 CA
follow LFT
#Anxiety
on chronic benzos
#Hypomagnesemia
Replete and monitor
#Suspected protein caloric malnutrition mild versus moderate of chronic illness
DVT ppx lovenox
Anticipated Discharge: > 48 hours
Subjective/Interval History
-
Date of Service: December 14, 2024
Patient currently seen on high flow nasal cannula
O2 sats around 92 to 94%
Currently on 2 mics of Levophed
States of dry cough
Objective Data
-
Labs:
Laboratory Results
12/14/24 12/14/24
04:19 05:39
WBC 15.3 H
Hgb 7.1 L 7.6 L
Hct 22.8 L 24.2 L
Plt Count 215
Sodium 139
Potassium 4.0
Chloride 109 H
Carbon Dioxide 26
BUN 26 H
Creatinine 0.6
Glucose < 30 L*
Calcium 8.0 L
Total Bilirubin 0.8
AST 112 H
ALT 27
Alkaline Phosphatase 876 H
Vital Signs:
Vital Signs
Temp Pulse Resp BP Pulse Ox
97.5 F 99 26 122/71 93
12/14/24 11:05 12/14/24 10:00 12/14/24 10:00 12/14/24 10:00 12/14/24 11:40
I&O
12/13/24 12/14/24 12/15/24
06:59 06:59 06:59
Intake Total 1240 / 1240
Balance 1240 / 1240
Data Reviewed
-
Total Time Spent with Patient (in minutes): 55
[2024-12-14 12:51] LABS: Glucose - Point of Care 65 mg/dl (70-99)
[2024-12-14 13:30] LABS: Glucose - Point of Care 205 mg/dl (70-99)
[2024-12-14 13:32] LABS: Iron < 20 ug/dl (37-170); Total Iron Binding Capacity 133 ug/dl (265-497)
[2024-12-14] MEDS: MORPHINE SULFATE 1 MG IV ×3 (13:38→23:19)
[2024-12-14] MEDS: FLUSH (NSS) 1 FLUSH IV (13:39)
--- NOTE | 2024-12-14 14:56 | CON.ID ---
Consultation
-
Date/Time Consultation Requested: December 14, 2024 1445
Date/Time Consultation Performed: December 14, 2024 1500
Requesting Provider: Dr. Byron Rivera
Performing Provider: Dr. Michelle Desai
Reason for Consultation: Bacteremia
Chief Complaint / Past History
Chief Complaint
Fevers and chills
History of Present Illness
64-year-old female with history of cholangiole carcinoma with metastases to the lungs, liver, and spine currently on Ivosidenib, chronic hypoxemic respiratory failure on 6 L of nasal cannula who presented to the ER December 13 due to 1 day history of
fever and chills. She denies acute cough or shortness of breath. No headache or sinus congestion. No change in bowel habits. No urine symptoms. No ill contacts. No travel history. No recent hospitalization. In the ED temperature 103.1,
lactic acid 5.2, white count 14.5 which increased to 15.3 with bandemia. Patient was hypoxemic with PaO2 of 56. She is currently on high flow oxygen and nonrebreather. Also requiring low-dose pressor. She is currently on vancomycin and cefepime.
Admission blood cultures positive for GPC in clusters.
Past History
Additional Past Medical History:
Cholangiocarcinoma with metastasis to the lungs, liver, spine on ivosidenib
Chronic hypoxemic respiratory failure on 6 L nasal cannula
Lymphedema
port placement
Allergy History:
neomycin Allergy (Severe, Verified 12/13/24 18:05)
Maharaj Ziyad Sydrome
Medications Reviewed: Yes
Current Antibiotics:
Vancomycin day 2
Cefepime day 2
Social History
Tobacco: Non-Smoker
Alcohol: None
Drug: None
Personal:
Family History
Family History: Not Pertinent
Review of Systems
Review of Systems
General: Fever, Chills and Change in Appetite
HEENT: Negative Sinus Problems, Headache or Pharyngitis
Cardiovascular: Negative Chest Pain or Dyspnea
Respiratory: Negative Dyspnea, Cough or Sputum Production
Gasteroenterology: Weight Loss; Negative Nausea, Vomiting or Diarrhea
Genital / Urological: Negative Dysuria or Flank Pain
Endocrine: Weakness
Neurological: Negative Dizziness
All systems: All other systems were reviewed and were negative
Vital Signs
Temp Pulse Resp BP Pulse Ox
97.5 F 109 25 145/82 91
12/14/24 11:05 12/14/24 13:15 12/14/24 13:15 12/14/24 13:00 12/14/24 13:15
Selected Entries
12/13/24
18:07 12/13/24
22:12
Temp 103.1 F H 101.3 F H
Physical Exam
Physical Exam
Constitutional: Acutely Ill, Chronically Ill and Cachetic
Head: Other (No frontal or max or sinus tenderness)
Eyes: No Conjunctival Hemorrhage and Sclera Anicteric
Cardiovascular: S1/S2 and Other (Tachycardic)
Pulmonary: Rales
Gastrointestinal: Soft, Non Tender and Non Distended
Genito-Urinary: Negative CVA Tenderness
Extremities: Edema (Bilateral lower extremity lymphedema)
Neurological: Other (Lethargic); Negative Meningeal Signs
Lines: Port (Right chest wall currently not accessed, no erythema or induration)
Lab / Diagnostic Study Results
12/14/24 05:39
12/14/24 04:19
Abs Immat Gran (auto) 0.0 10^3/uL (0-0.05) 12/13/24 18:14
Absolute Neuts (auto) 4.2 10^3/uL (1.4-6.5) 12/13/24 18:14
Absolute Lymphs (auto) 0.2 10^3/uL (1.2-3.4) L 12/13/24 18:14
Absolute Monos (auto) 0.1 10^3/uL (0.1-0.6) 12/13/24 18:14
Absolute Basos (auto) 0.0 10^3/uL (0-0.2) 12/13/24 18:14
Total Counted 100 12/14/24 04:19
Immature Gran % 0.2 % (0-0.5) 12/13/24 18:14
Neutrophils % 93.0 % (42.2-75.2) H 12/13/24 18:14
Lymphocytes % 5.3 % (20.5-51.1) L 12/13/24 18:14
Monocytes % 1.3 % (1.7-9.3) L 12/13/24 18:14
Eosinophils % 0.0 % (0-6) 12/13/24 18:14
Basophils % 0.2 % (0-2) 12/13/24 18:14
Abs Neuts (Manual) 13.9 10^3/uL (1.4-6.5) H 12/14/24 04:19
Segmented Neutrophils 81 % (42-75) H 12/14/24 04:19
Band Neutrophils 10 % (0-3) H 12/14/24 04:19
Lymphocytes (Manual) 8 % (20-51) L 12/14/24 04:19
Lactic Acid 1.6 mmol/L (0.7-2.0) 12/14/24 04:19
Microbiology Results
Micro:
12/13/24 19:10 Blood Culture - Preliminary
Blood/Venous Positive culture in progress
Gram Stain - Preliminary
12/13/24 18:14 Blood Culture - Preliminary
Blood/Venous Positive culture in progress
Gram Stain - Preliminary
12/13/24 20:42 Influenza Types A & B (JEANINE) - Final
Nasal Swab Negative for Influenza A & B, NAAT
Negative results must be combined with clinical observations
and patient history.
Nucleic Acid Amplification test (NAAT)performed on the
[employer] platform.
6/4/25 CXR: Extensive pulmonary metastatic disease. Two lytic bony lesions as described, raising concern for bony metastatic disease.
Assessment / Plan
#GPC clusters bacteremia x 2 sets drawn 30 minutes apart
# Severe sepsis with fever, leukocytosis, bandemia, hypotension
# Acute on chronic hypoxemic respiratory failure
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
# Presence of port
- Suspect CLA BSI from port, present on admission.
- Await identification of the organism. If Staph aureus, the port has to come out.
- Repeat blood cultures x 2
- Extensive pulmonary metastases, cannot rule out pneumonia. Of note patient without acute respiratory symptoms. However she is severely hypoxemic.
Check urine Legionella antigen, and urine Streptococcus pneumonia antigen.
- Continue vancomycin and cefepime for now.
- Trend temps, white count. Follow vitals and oxygen requirement.
[2024-12-14 14:58] LABS: Folate 6.6 ng/ml (2.76-20); Vitamin B12 878 pg/ml (239-931)
--- NOTE | 2024-12-14 16:59 | CM ---
Addendum entered by Lindy Palacio RN 12/14/24 17:09:
Additionally, Herve says [facility] nurse wraps patient's legs due to swelling. PT/OT was discontinued.
The patient has a caregiver 2 hrs/day twice daily 7 days/week (agency unknown)
PCP - Cj Goldstein
Pharmacy - [facility]
Plan follow patient's O2 needs, diet status and mobility.
Plan TBD.
Original Note:
Patient with Hx metastatic Biliary adenocarcinoma with Dx septic shock likely secondary to suspected pneumonia. High flow O2 - 60L w NRB per nurse. NPO. Receiving IVF, IV Abx. Off Levophed per nurse. Nurse assessment this am: A/O.
Phone call to Joie, patient's daughter; message left to c/b.
Spoke with patient's brother Herve;
the patient resides alone in a split level house with no outside/inside steps, with bedroom created on main floor.
The patient has been sleeping on the couch and uses a lift recliner.
DME - RW, w/c, 2 O2 generators/portables (DME provider unknown)
Current with [facility]
No prior SNF
Herve says the patient is interested in obtaining a hospital bed.
The patient has 3 POAs: daughter Joie (primary POA), her sister Jess and Herve.
Plan follow patient's O2 needs, diet status and mobility.
Plan TBD.
[2024-12-14] MEDS: LOVENOX 40 MG SC (17:45)
--- NOTE | 2024-12-14 18:00 | PTCARENOTE ---
Patient NPO excepts for meds and sips of water. Morphine sulfate given x2 for SOB. Patient currently high flow oxygen 60% 100L, order to keep pulse ox 88% or greater. Currently patient is 91%-94%. INC of loose stool multiple times. Will also
use bed cameron. Levo drip discontinued this afternoon. BP's have remained stable. IV fluids infusing as ordered. Accuchecks Q6HRS. Patient has been hypoglycemic. Administered dextrose IV x2 today. Family in room at bedside.
[2024-12-14 19:02] LABS: Glucose - Point of Care 49 mg/dl (70-99)
[2024-12-14 19:29] LABS: Glucose - Point of Care 142 mg/dl (70-99)
[2024-12-14] MEDS: ATIVAN PO ×2 (21:00→21:05)
[2024-12-14] MEDS: ATIVAN 0.25 MG IV (21:25)
[2024-12-14] MEDS: NSS (PRESERVATIVE FREE) 0.125 ML IV (21:25)
[2024-12-14 21:27] LABS: Glucose - Point of Care 64 mg/dl (70-99)
[2024-12-14 21:55] LABS: Glucose - Point of Care 142 mg/dl (70-99)
[2024-12-14] MEDS: D10W 1000 IV (22:28)
[2024-12-14] MEDS: DUONEB 3 ML INH (23:25)
[2024-12-14 23:50] LABS: Glucose - Point of Care 136 mg/dl (70-99)
[2024-12-15] VITALS (25 sets, daily range): BP systolic 58–128; BP diastolic 40–78; BMI 22.7
[2024-12-15 02:04] LABS: Glucose - Point of Care 86 mg/dl (70-99)
[2024-12-15] MEDS: MORPHINE SULFATE 1 MG IV ×3 (02:11→10:09)
--- NOTE | 2024-12-15 02:18 | W.PN.UPDATE ---
Update Note
Progress Note Update
0200 RN reports that pt wishes to be a full DNR/DNI. At bedside this ELECTRONICS SPECIALIST confirmed this with pt. Confirmed that if her heart were to stop or if she were to cease breathing she would not wish compressions nor intubation. Pt confirmed this. She had
told nurse that she just ' wants to be comfortable' but when i asked if she would like me to consult hospice she shook her head no. Explained to pt that if she should change her mind to let nursing know
Morphine freq increased per pt request. This does help her pain and dyspnea. Freq changed to q2hprn but did explain we do have to be mindful of her BP as it is on the lower side.
[2024-12-15] MEDS: MAXIPIME 2000 MG IV (04:24)
[2024-12-15] MEDS: STERILE WATER FOR INJECTION 10 ML IV (04:24)
[2024-12-15] MEDS: DEXTROSE 50% SYRINGE 12.5 GRAMS IV ×2 (04:41→10:08)
[2024-12-15] MEDS: OCEAN, SALINE MIST 2 SPRAYS NASAL (04:47)
[2024-12-15 04:50] LABS: Glucose - Point of Care 53 mg/dl (70-99)
[2024-12-15] MEDS: VANCOCIN HCL 500 MG 100 IV (04:53)
[2024-12-15 05:00] LABS: Hematocrit 23.6 % (37.0-47.0); Hemoglobin 7.4 g/dL (12.0-16.0); Mean Corp Hgb Conc. 31.4 g/dL (33.0-37.0); Mean Corpuscular Hgb 28.1 pg (27.0-31.0); Mean Corpuscular Volume 89.7 fL (81.0-99.0); Mean Platelet Volume 9.5 fL (7.4-10.4); Platelet Count 220 10^3/uL (130-400); Red Blood Cell Count 2.63 10^6/uL (4.20-5.40); Red Cell Dist. Width 15.8 % (11.5-14.5); White Blood Cell Count 22.8 10^3/uL (4.8-10.8)
[2024-12-15 05:26] LABS: Glucose - Point of Care 97 mg/dl (70-99)
[2024-12-15 05:34] LABS: ALT (SGPT) 64 U/L (0-35); AST (SGOT) 505 U/L (14-36); Albumin 2.7 g/dl (3.5-5.0); Alkaline Phosphatase 730 U/L (38-126); Blood Urea Nitrogen 35 mg/dl (7-17); Calcium 7.6 mg/dl (8.4-10.2); Carbon Dioxide 25 mmol/L (22-30); Chloride 108 mmol/L (98-107); Estimated Creatinine Clearance 63 ml/min; Glucose 40 mg/dl (70-99); Magnesium 2.1 mg/dl (1.6-2.3); Phosphorus 5.1 mg/dl (2.5-4.5); Potassium 4.6 mmol/L (3.5-5.1); Sodium 140 mmol/L (135-145); Total Bilirubin 0.7 mg/dl (0.2-1.3); eGFR > 60.00
[2024-12-15 05:38] LABS: % Basophils 0.2 % (0-2); % Eosinophils 0.3 % (0-6); % Immature Granulocytes 5.3 % (0-0.5); % Lymphocytes 2.8 % (20.5-51.1); % Monocytes 6.2 % (1.7-9.3); % Neutrophils 85.2 % (42.2-75.2); Absolute Eosinophils 0.1 10^3/uL (0-0.7); Absolute Immature Granulocytes 1.2 10^3/uL (0-0.05); Absolute Lymphocytes 0.6 10^3/uL (1.2-3.4); Absolute Monocytes 1.4 10^3/uL (0.1-0.6); Absolute Neutrophils 19.4 10^3/uL (1.4-6.5); Nucleated Red Blood Cells % 0 %
--- NOTE | 2024-12-15 06:42 | PTCARENOTE ---
Pt ox3 and drowsy. Pt 90% on 60L 100% HFNC. NSR on monitor. This RN inquired about pt's resuscitation status. During conversation pt stated that she just 'wants to be comfortable.' Confirmed with patient that she would not want CPR. Notified Nakita
ORGAN BUILDER who came to bedside. Pt now a DNR. Pt tachypneic and dyspneic at rest and she requested more morphine. Rx for IV morphine changed from q4 to q2 hours. Pt's blood sugar continues to drop. Pt hypoglycemic twice overnight (64 at 2115 and 53 at
0439). Hypoglycemic protocol followed. ANNE Mace notified and fluid adjusted. Currently pt has D10 infusing @ 100 mL/hr. Pt resting in bed with call jaramillo in reach.
[2024-12-15 08:00] LABS: Glucose - Point of Care 83 mg/dl (70-99)
--- NOTE | 2024-12-15 08:33 | PTCARENOTE ---
Assumed care of patient this AM. Patient made DNR last night at patient's request. Continuing to monitor blood sugars for hypoglycemia. Patient BS this AM 83. D10W @ 100mls/hr infusing as ordered. High flow 60% 100L. Morphine sulfate prn given
as needed for shortness of breath. Family in room at bedside. Will continue to monitor frequently.
--- NOTE | 2024-12-15 09:10 | PHA.VAN.FU ---
Vancomycin Assessment / Plan
- Assessment
Renal Function: Stable
WBC's are: Trending Up
In the past 24 hrs, patient has been: Afebrile
- Dosing Plan
Continue: VANCO 500MG Q12H
- Monitoring Plan
Peak Level: 6/5 @2100
Trough Level: 6/6 @0530
- Follow Up
Pharmacy will continue to follow.
Vancomycin Follow UP
- -
Patient Age: 64
Patient Sex: Female
Vancomycin Day #: 2
Indication: Bacteremia
Requesting Provider: Dr. Gates/Dr. Desai
Pertinent Antimicrobial Allergies:
neomycin - Maharaj Ziyad syndrome
Height / Weight:
Height 5 ft 2 in
Actual Weight 56.245 kg
Pertinent Past Medical History: metastatic billiary adenocarcinoma, home O2
- Vital Signs / Lab Results
Temp Pulse Resp BP Pulse Ox
97.5 F 101 18 114/78 93
12/15/24 03:37 12/15/24 08:30 12/15/24 08:30 12/15/24 08:30 12/15/24 08:38
Lab Results - Hematology
12/13/24 12/14/24 12/15/24
18:14 04:19 04:22
WBC 4.5 L 15.3 H 22.8 H
Band Neutrophils 10 H
Lab Results - Chemistry
12/13/24 12/14/24 12/15/24
18:14 04:19 04:22
BUN 22 H 26 H 35 H
Creatinine 0.5 L 0.6 0.7
Estimated Creat Clear 73 73 63
Albumin 3.4 L 2.7 L 2.7 L
12/13/24 12/14/24 12/14/24
18:14 00:11 04:19
Lactic Acid 5.2 H* 2.9 H 1.6
Microbiology Results
12/13/24 19:10 Blood Culture - Preliminary
Blood/Venous Positive culture in progress
Gram Stain - Preliminary
12/13/24 18:14 Blood Culture - Preliminary
Blood/Venous Positive culture in progress
Gram Stain - Preliminary
12/13/24 20:42 Influenza Types A & B (JEANINE) - Final
Nasal Swab Negative for Influenza A & B, NAAT
Negative results must be combined with clinical observations
and patient history.
Nucleic Acid Amplification test (NAAT)performed on the
[employer] platform.
[2024-12-15 09:44] LABS: Glucose - Point of Care 69 mg/dl (70-99)
--- NOTE | 2024-12-15 10:06 | W.PN.PUL3 ---
Today's Communication / Plan
-
Start morphine
Ativan as needed
Focus on comfort
Discontinue unnecessary medications
Discussed with Dr. Rivera
Assessment
-
64-year-old woman with past medical history of biliary metastatic carcinoma on therapy at [facility]. Admitted with fevers, hypoxemia and abnormal chest x-ray suggestive of pneumonia. We were consulted on 12/14/2024 for evaluation of
hypoxemia and abnormal chest x-ray.
Acute hypoxemic respiratory failure recurrent high flow oxygen due to possible pneumonia on top of bilateral metastatic disease.
Chest x-ray: Bilateral metastatic disease-lower lobe infiltrate suggestive of pneumonia versus atelectasis.
Chronic hypercapnic respiratory failure: Likely due to underlying bilateral metastatic lung disease burden.
AB.38/51/56. Bacteremia: Gram-positive cocci in clusters
Septic shock
Gram stain with gram-positive cocci in clusters.
Chronic immunosuppression on cancer therapy
Severe anemia likely due to underlying carcinoma/chemotherapy
Abnormal LFTs-elevated alkaline phosphatase/mild transaminitis-suspect bone metastatic disease.
Cachexia
-
Leukocytosis conditions present prior admission:
Conditions present prior admission
Biliary adenocarcinoma with pulmonary metastasis-follows at [facility]-on chemotherapy
.
Assessment and plan:
Unfortunately clinical condition has deteriorated--
Now on high flow oxygen and nonrebreather mask on top. Borderline hypoxemia. Hypotensive. Increased work of breathing.
Significant oxygen desaturation overnight.
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
Prognosis is very poor.
I have discussed with family yesterday including her daughter who is a mail distribution clerk. They agree that unfortunately at this point patient unlikely to recover.
It has been decided today in discussion with Dr. Rivera to proceed with comfort measures.
-
Continue oxygen for comfort
Agree with increasing morphine and Ativan
Antibiotics at your discretion
Focus on comfort
No additional recommendations
Sign off.
-
Subjective Data
-
Date of Service:
Date of Service: December 15, 2024
Chief Complaint: Pulmonary Follow Up (Septic shock/hypoxemic respiratory failure)
Subjective:
unfortunately more tachypneic, worsening shortness of breath
Debilitated.
Denies hemoptysis.
Review of Systems
Cardiopulmonary: Dyspnea, Dyspnea on Exertion and Cough
Objective Data
Data Reviewed
Vital Signs / I&O / Oxygen:
Vital Signs
Temp Pulse Resp BP Pulse Ox
97.5 F 101 18 114/78 93
12/15/24 03:37 12/15/24 08:30 12/15/24 08:30 12/15/24 08:30 12/15/24 08:38
Intake and Output
12/14/24 12/15/24 12/16/24
06:59 06:59 06:59
Intake Total 1240 / 1240 2405 / 2405
Balance 1240 / 1240 2405 / 2405
SaO2 93
Nasal Cannula flow liters per 60
minute
Physical Exam
General: Comfortable and Other (Cachectic)
HEENT: Normocephalic
Cardiovascular: S1-S2
Respiratory: Crackles
GI: Soft and Non Distended
Neurology: Awake and Alert
Skin: Warm and Other (Pale)
Labs/Micro/Reports
Lab Data
12/15/24 04:22
12/15/24 04:22
Microbiology
12/13/24 19:10 Blood/Venous Blood Culture - Preliminary
Positive culture in progress
12/13/24 19:10 Blood/Venous Gram Stain - Preliminary
12/13/24 18:14 Blood/Venous Blood Culture - Preliminary
Positive culture in progress
12/13/24 18:14 Blood/Venous Gram Stain - Preliminary
12/13/24 20:42 Nasal Swab Influenza Types A & B (JEANINE) - Final
Negative for Influenza A & B, NAAT
Negative results must be combined with clinical observations
and patient history.
Nucleic Acid Amplification test (NAAT)performed on the
[employer] platform.
--- NOTE | 2024-12-15 10:34 | W.PN.ONC2 ---
Today's Communication / Plan
-
hospice order placed
Impression
Impression
Pneumonia/sepsis
Acute on chronic respiratory failure
Metastatic cholangiocarcinoma
Poor performance status
Plan
Plan
Pt/family opting for comfort focused goals
Subjective/Objective
Subjective
RN addressing pt comfort needs at bedside
on high flow
Vital Signs:
Vital Signs
Temp Pulse Resp BP Pulse Ox
97.5 F 101 18 114/78 93
12/15/24 03:37 12/15/24 08:30 12/15/24 08:30 12/15/24 08:30 12/15/24 08:38
Lab Results:
Laboratory Data
WBC 22.8 10^3/uL (4.8-10.8) H 12/15/24 04:22
Hgb 7.4 g/dL (12.0-16.0) L 12/15/24 04:22
Plt Count 220 10^3/uL (130-400) 12/15/24 04:22
eGFR > 60.00 12/15/24 04:22
Physical Exam
cachectic
HEENT: Moist Mucous Membranes; No Jaundice
GI: Soft
Extremities: Pulses Present and Edema
Orders
Orders
Orders From Last 24 Hours
12/15/24 08:35
Case Management Consult ONCE
--- NOTE | 2024-12-15 10:59 | CM ---
Patient with Hx metastatic Biliary adenocarcinoma with Dx septic shock likely secondary to suspected pneumonia. High flow O2. MS gtt.
Consult: Hospice
Met with patient, daughter Joie & Jess & son Herve;
attempted to explain hospice philosophy & benefits and Joie stated no need as she is a physician - other family had no questions.
Family agreed to meeting with Hospice.
Offer embossing unit operator to see patient and all family declined.
Messages with [facility]; she will meet with the patient/family.
Plan follow up after seen by Hospice.
[2024-12-15] MEDS: MORPHINE 100 IV (11:03)
[2024-12-15] MEDS: MORPHINE SULFATE 2 MG IV ×4 (11:22→18:04)
--- NOTE | 2024-12-15 11:37 | W.PN.ID1 ---
Date of Service
Date of Service: December 15, 2024
Today's Communication
DC abx's.
Comfort measures.
Assessment / Plan
#GPC clusters bacteremia x 2 sets drawn 30 minutes apart
# Severe sepsis with fever, leukocytosis (worse), bandemia, hypotension
# Acute on chronic hypoxemic respiratory failure
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
# Presence of port
- Suspect CLA BSI from port, present on admission.
- Repeat blood cultures x 2 pending
- Patient is now transitioned to comfort measure.
- Discontinue vancomycin and cefepime (futile at this point). Daughter agreeable.
Chief Complaint
-: Clinical Sepsis and Bacteremia
Subjective / Review of Systems
Daughter at bedside. Pt now comfort measures.
Vital Signs / Physical Exam
Vital Signs
Vital Signs
Temp Pulse Resp BP Pulse Ox
97.5 F 101 18 114/78 93
12/15/24 03:37 12/15/24 08:30 12/15/24 08:30 12/15/24 08:30 12/15/24 08:38
Physical Exam
Constitutional: Acutely Ill, Chronically Ill and Cachetic
Pulmonary: Rales and Other (labored)
Gastrointestinal: Soft, Non Tender and Non Distended
Extremities: Edema
Objective Data
Lab Data
Lab Results
12/15/24 04:22
12/15/24 04:22
Estimated Creat Clear 63 ml/min 12/15/24 04:22
Lactic Acid 1.6 mmol/L (0.7-2.0) 12/14/24 04:19
Total Bilirubin 0.7 mg/dl (0.2-1.3) 12/15/24 04:22
AST 505 U/L (14-36) H* 12/15/24 04:22
ALT 64 U/L (0-35) H 12/15/24 04:22
Alkaline Phosphatase 730 U/L (38-126) H 12/15/24 04:22
Most recent labs reviewed.
Micro Results:
12/14/24 17:54 Blood Culture - Pending
Blood/Venous
12/14/24 16:53 Blood Culture - Pending
Blood/Venous
12/13/24 19:10 Blood Culture - Preliminary
Blood/Venous Positive culture in progress
Gram Stain - Preliminary
12/13/24 18:14 Blood Culture - Preliminary
Blood/Venous Positive culture in progress
Gram Stain - Preliminary
12/13/24 20:42 Influenza Types A & B (JEANINE) - Final
Nasal Swab Negative for Influenza A & B, NAAT
Negative results must be combined with clinical observations
and patient history.
Nucleic Acid Amplification test (NAAT)performed on the
[employer] platform.
12/14/24 CXR: Extensive pulmonary metastatic disease. Two lytic bony lesions as described, raising concern for bony metastatic disease.
[2024-12-15] MEDS: FEOSOL PO (11:58)
[2024-12-15] MEDS: STERILE WATER FOR INJECTION IV (12:00)
[2024-12-15] MEDS: ROBINUL 0.2 MG IV (12:00)
[2024-12-15] MEDS: FLUSH (NSS) 1 FLUSH IV ×2 (12:03→13:18)
--- NOTE | 2024-12-15 12:16 | HOSPNOTE ---
Met with family and discussed comfort care. The patient is on a morphine drip and is imminently dying. I will continue to support family.
--- NOTE | 2024-12-15 12:16 | W.PN.HOSP.TC ---
Today's Communication/Plan
-
Comfort measures
Morphine drip
Ativan drip as needed
Hospice consult
Discussed with daughter at bedside who is a physician she
Patient poor prognosis.
Assessment / Plan
Assessment / Plan
General: Severe respiratory Distress, cachectic
HEENT:c, right chest wall port noted, mild dried blood right nostril noted
Respiratory: Diffuse rhonchi
Cardiac: S1/S2 and Regular Rhythm; tachycardia
GI: Non Tender, Normal Bowel Sounds and Distended
Musculoskeletal: No Clubbing, No Cyanosis, Edema, Left Lower Extremity and Edema, Right Lower Extremity
Skin: Warm; No Dry or Rash
Neuro: Awake, seems mildly confused
Psych: Calm
# Septic shock likely secondary to suspected bacterial pneumonia versus viral.
# Severe lactic acidosis
#Acute on chronic hypoxic respiratory failure likely secondary to lung malignancy versus pneumonia versus lymphangitic spread of cancer
#Chronic hypercapnic respiratory failure
COVID and influenza found to be negative
Continue with broad-spectrum antibiotics with vancomycin and cefepime for now
Wean oxygen as tolerated
Currently on 50 L with 100% FiO2 high flow nasal cannula.
Currently on 2 mics of Levophed. Wean if blood pressure can tolerate
Lactic acidosis resolved with IV fluid resuscitation
Will have speech therapy evaluate patient
Holding diuretics
Right to maintain euvolemic volume status
Patient continues to require increased amount of oxygenation. Patient tachycardic, tachypneic. Discussed with patient daughter who is physician and and she understand patient current hospital prognosis and poor prognosis. And [id number] at
bedside. Daughter agreed for patient to be transition to comfort measures as patient with significantly poor prognosis. Daughter agreed for patient to be started on morphine infusion. Understand poor prognosis.
Pulmonary consulted
Mild toxic metabolic encephalopathy likely secondary to severe hypoxemia, septic shock
# Coag negative staph bacteremia likely contaminant
Second set of blood cultures pending. If positive may require ID input as patient has port
Patient already on vancomycin
#Hypoglycemia likely 2/2 infection
POC have stabilized
#Biliary adenocarcinoma with mets to lung, liver, spine
#Chronic immunosuppressant state
Oncology consult - patient requested to contact in [facility]
#Anemia iron deficiency
#Leukopenia
follow CBC
No active luminal bleeding noted
Check anemia panel
#Elevated Alk.phos
#Elevated AST
2/2 CA
follow LFT
#Anxiety
on chronic benzos
#Hypomagnesemia
Replete and monitor
#Suspected protein caloric malnutrition mild versus moderate of chronic illness
DVT prophylaxis none
Anticipated Discharge: > 48 hours
Subjective/Interval History
-
Date of Service: December 15, 2024
Overnight patient CODE STATUS changed to complete DNR
Patient remains severely tachypneic, tachycardic, increasing oxygenation requirement. O2 saturation at 87%
Objective Data
-
Labs:
Laboratory Results
12/15/24
04:22
WBC 22.8 H
Hgb 7.4 L
Hct 23.6 L
Plt Count 220
Sodium 140
Potassium 4.6
Chloride 108 H
Carbon Dioxide 25
BUN 35 H
Creatinine 0.7
Glucose 40 L*
Calcium 7.6 L
Total Bilirubin 0.7
AST 505 H*
ALT 64 H
Alkaline Phosphatase 730 H
Vital Signs:
Vital Signs
Temp Pulse Resp BP Pulse Ox
97.5 F 101 18 114/78 93
12/15/24 03:37 12/15/24 08:30 12/15/24 08:30 12/15/24 08:30 12/15/24 08:38
I&O
12/14/24 12/15/24 12/16/24
06:59 06:59 06:59
Intake Total 1240 / 1240 2405 / 2405
Balance 1240 / 1240 2405 / 2405
Data Reviewed
-
Total Time Spent with Patient (in minutes): 55
[2024-12-15] MEDS: ATIVAN 1 MG IV (13:18)
--- NOTE | 2024-12-15 13:41 | PTCARENOTE ---
Patient on comfort measures. Morphine sulfate drip started at 11AM. PRN morphine given as per protocol to make patient comfortable. Suctioning patient as needed. Family in room at bedside.
[2024-12-15] MEDS: D10W IV ×2 (18:00→20:34)
--- NOTE | 2024-12-15 18:45 | SUR.PHASEI ---
Morphine drip on step 1. Patient comfortable. Respirations agonal with periods of apnea. Family in room at bedside. Emotional support provided.
--- NOTE | 2024-12-15 20:32 | W.PN.DEATH ---
Pronouncement of
-
Called to see patient to pronounce.
No spontaneous heart tones or respirations noted.
Patient not responsive to verbal stimuli.
Patient is pronounced .
Time of : 20:10
Date of : 12/15/24
Cause of : Septic shock due to suspected bacterial pneumonia vs viral, severe lactic acidosis, acute on chronic hypoxic respiratory failure
Family Notified: Yes (Family at bedside: Sister, Jess; Daughter, Joie; Brother, Herve; others)
--- NOTE | 2024-12-15 21:31 | PTCARENOTE ---
@ 2010 patient noted to be asystole on the monitor with no palpable heart beat with no respirations. embedded nurse CLAY MACHINE OPERATOR to bedside to pronounce. Emotional support provided to family.
--- NOTE | 2024-12-16 07:14 | W.DCSUMMARY ---
Discharge Summary
Discharge Data
Date of Admission: 12/13/24
Date of Discharge: 12/15/24
-
Pending Results: No
Hospital Course
64-year-old female past medical history of biliary adenocarcinoma with metastasis to the lung, liver, spine, chronic immunosuppressive state, anemia, leukopenia, chronic hypercapnic respiratory failure who is presenting from home with shortness of
breath. Patient was found to have acute on chronic hypoxic respiratory failure which was deemed secondary to lung malignancy worsening suspected for lymphangitic spread versus pneumonia. Patient was found to be in septic shock. Patient received
IV fluid bolus. Patient required Levophed. Patient was seen transition from her baseline 6 L to high flow nasal cannula. Patient was on 50 L with 100% FiO2 off oxygenation requirement. Patient was started on broad-spectrum antibiotics with
vancomycin and cefepime. Patient lactic acidosis resolved. Patient was eval by speech therapy and recommended NPO. Diuretics were held. Pulmonary and infectious disease was consulted. Patient with persistent hypoglycemia which was treated.
Patient was symptomatic with severe shortness of breath. Patient without much improvement in breathing. Hospice was recommended. Oncology was also consulted who also agreed. Patient with worsening hypoxemia, tachypnea, tachycardia. Patient
without much improvement. Patient case was discussed with her daughter who is a physician. Family agreed for patient to be transition to comfort care as the goal was to make patient comfortable. Patient was started on morphine as needed pushes.
However patient continued to remain tachypneic. Plan was transition patient to morphine infusion. Patient on 12/15/2024 at 2009.
Discharge Plan
-
Patient Disposition:
Date/Time
Date/Time: 12/15/24 20:10
Discharge Date and Time
Discharge Date/Time: 12/15/24 20:10
Print Language: MAORI
== END 2024-12-15 20:10 | disposition expired | DRG 871 ==
LOC: IMU 21:08
PROVIDERS: ADMITTING PHYSICIAN Internal Medicine; ATTENDING PHYSICIAN Hospitalist; CONSULT PHYSICIAN Internal Medicine Infectious Disease; EMERGENCY PHYSICIAN Student in an Organized Health Care Education/Training Program; FAMILY PHYSICIAN Internal Medicine; OTHER PHYSICIAN Internal Medicine Critical Care Medicine; OTHER PHYSICIAN Internal Medicine Hematology & Oncology
DX: A41.9 Sepsis, unspecified organism (principal); G92.8 Other toxic encephalopathy; J18.9 Pneumonia, unspecified organism; J96.21 Acute and chronic respiratory failure with hypoxia; R65.21 Severe sepsis with septic shock; C22.1 Intrahepatic bile duct carcinoma; C78.00 Secondary malignant neoplasm of unspecified lung; C78.7 Secondary malignant neoplasm of liver and intrahepatic bile duct; C79.51 Secondary malignant neoplasm of bone; E87.20 Acidosis, unspecified; R64 Cachexia; Z11.52 Encounter for screening for COVID-19; E16.2 Hypoglycemia, unspecified; F41.9 Anxiety disorder, unspecified; Z51.5 Encounter for palliative care; Z68.22 Body mass index [BMI] 22.0-22.9, adult; Z66 Do not resuscitate
CPT/HCPCS: 36600; 71045; 80053; 82607; 82728; 82746; 82805; 82962; 83540; 83550; 83605; 83735; 83880; 84100; 85014; 85018; 85025; 86850; 86900; 86901; 87040; 87147; 87150; 87205; 87502; 87811; 93005; 94640; 96365; 96366; 96367; 96375; 99291